=== PATIENT | female | born 1995 | race Caucasian/White ===

== ENCOUNTER → 2019-04-13 | Outpatient (CLI) | payer OTHER | LOC: DIA.ED 12:49 | DX: O24.419 Gestational diabetes mellitus in pregnancy, unspecified control (principal); Z3A.18 18 weeks gestation of pregnancy | CPT/HCPCS: G0108 ==

== ENCOUNTER → 2019-04-22 | Outpatient (CLI) | payer OTHER | LOC: DIA.ED 10:10 | DX: O24.419 Gestational diabetes mellitus in pregnancy, unspecified control (principal); Z3A.18 18 weeks gestation of pregnancy | CPT/HCPCS: G0108 ==